=== PATIENT | female | born 1965 | race Caucasian/White ===

== ENCOUNTER → 2017-03-02 | Outpatient (CLI) | payer BC ==
--- NOTE | 2017-03-02 13:26 | MM ---
Reason for exam: screening (asymptomatic). Last mammogram was performed 1 year and 2 months ago. History: Patient is postmenopausal. Physical Findings: A clinical breast exam by your physician is recommended on an annual basis and results should be correlated with mammographic findings. MG Screening Mammo w CAD Bilateral CC and MLO view(s) were taken. Prior study comparison: December 31, 2015, bilateral MG screening mammo w CAD. January 02, 2015, right breast MG work up mamm w CAD RT. The breast tissue is heterogeneously dense. This may lower the sensitivity of mammography. There is no discrete abnormality. ASSESSMENT: Negative, BI-RAD 1 RECOMMENDATION: Routine screening mammogram of both breasts in 1 year.
== END | disposition home or self-care (01) ==
LOC: RADMAMWWP 08:23
PROVIDERS: ATTEND Family Medicine
DX: Z12.31 Encounter for screening mammogram for malignant neoplasm of breast (principal)

== ENCOUNTER → 2018-03-21 | Outpatient (CLI) | payer BC ==
--- NOTE | 2018-03-22 08:19 | MM ---
Reason for exam: screening (asymptomatic). Last mammogram was performed 1 year and 1 month ago. History: Patient is postmenopausal. Physical Findings: A clinical breast exam by your physician is recommended on an annual basis and results should be correlated with mammographic findings. MG Screening Mammo w CAD Bilateral CC and MLO view(s) were taken. Prior study comparison: March 02, 2017, bilateral MG screening mammo w CAD. December 31, 2015, bilateral MG screening mammo w CAD. The breast tissue is heterogeneously dense. This may lower the sensitivity of mammography. Nodule measuring 7mm upper outer quadrant left breast 7.8cm from nipple. This finding is changed when compared with previous exams. ASSESSMENT: Incomplete: need additional imaging evaluation, BI-RAD 0 RECOMMENDATION: Special view mammogram and ultrasound of the left breast. [facility] will attempt to contact patient to return for supplemental views and ultrasound.
== END | disposition home or self-care (01) ==
LOC: RADMAMWWP 06:48
PROVIDERS: ATTEND Family Medicine
DX: Z12.31 Encounter for screening mammogram for malignant neoplasm of breast (principal)
CPT/HCPCS: 77067

== ENCOUNTER → 2018-04-11 | Outpatient (CLI) | payer BC ==
--- NOTE | 2018-04-11 13:42 | MM ---
Reason for exam: additional evaluation requested from abnormal screening. Last mammogram was performed 1 month ago. History: Patient is postmenopausal. Physical Findings: Nurse Summary: 0.5cm nodule in the left breast at 1 o'clock (nurse samina). MG Work Up Mamm w CAD LT Spot compression CC, spot compression MLO, and ML view(s) were taken of the left breast. Prior study comparison: March 21, 2018, bilateral MG screening mammo w CAD. March 02, 2017, bilateral MG screening mammo w CAD. The breast tissue is heterogeneously dense. This may lower the sensitivity of mammography. Finding: There is a persistent equal density (isodense), circumscribed round mass located 6 cm from the nipple in the lower outer quadrant, middle position of the left breast. There is no discrete abnormality at palpable area with BB. These results were verbally communicated with the patient and result sheet given to the patient on 04/11/18. ASSESSMENT: Incomplete: need additional imaging evaluation, BI-RAD 0 RECOMMENDATION: Ultrasound of the left breast.
--- NOTE | 2018-04-11 13:44 | USB ---
Reason for exam: additional evaluation requested from abnormal screening. History: Patient is postmenopausal. US Breast Workup Limited LT Left limited breast ultrasound including focal area of concern, retroareolar and axilla demonstrates a 0.4 x 0.3 x 0.4cm lesion too small to characterize at 4 o'clock and a 0.7 x 0.3 x 0.6cm cystic cluster at 4 o'clock. These results were verbally communicated with the patient and result sheet given to the patient on 04/11/18. ASSESSMENT: Probably benign, BI-RAD 3 RECOMMENDATION: Follow-up diagnostic mammogram and ultrasound of the left breast in 6 months. Manage on a clinical basis with regard to palpable.
== END | disposition home or self-care (01) ==
LOC: RADMAMWWP 10:25
PROVIDERS: ATTEND Family Medicine
DX: R92.8 Other abnormal and inconclusive findings on diagnostic imaging of breast (principal)
CPT/HCPCS: 77065

== ENCOUNTER → 2019-04-03 | Outpatient (CLI) | payer BC ==
--- NOTE | 2019-04-04 13:48 | MM ---
Reason for exam: screening (asymptomatic). Last mammogram was performed 1 year ago. History: Patient is postmenopausal. Physical Findings: A clinical breast exam by your physician is recommended on an annual basis and results should be correlated with mammographic findings. MG Screening Mammo w CAD Bilateral CC and MLO view(s) were taken. Prior study comparison: April 11, 2018, left breast MG work up mamm w CAD LT. March 21, 2018, bilateral MG screening mammo w CAD. The breast tissue is heterogeneously dense. This may lower the sensitivity of mammography. There is chronic nodularity bilaterally. There is no dominant lesion. No significant changes when compared with prior studies. ASSESSMENT: Benign, BI-RAD 2 RECOMMENDATION: Routine screening mammogram of both breasts in 1 year.
== END | disposition home or self-care (01) ==
LOC: RADMAMWWP 08:50
PROVIDERS: ATTEND Family Medicine
DX: Z12.31 Encounter for screening mammogram for malignant neoplasm of breast (principal)
CPT/HCPCS: 77067

== ENCOUNTER → 2020-05-27 | Outpatient (CLI) | payer BC ==
--- NOTE | 2020-05-28 12:39 | MM ---
Reason for exam: screening (asymptomatic). Last mammogram was performed 1 year and 2 months ago. History: Patient is postmenopausal. Physical Findings: A clinical breast exam by your physician is recommended on an annual basis and results should be correlated with mammographic findings. MG Screening Mammo w CAD Bilateral CC and MLO view(s) were taken. Prior study comparison: April 03, 2019, bilateral MG screening mammo w CAD. April 11, 2018, left breast MG work up mamm w CAD LT. There are scattered fibroglandular densities. No significant changes when compared with prior studies. ASSESSMENT: Benign, BI-RAD 2 RECOMMENDATION: Routine screening mammogram of both breasts in 1 year.
== END | disposition home or self-care (01) ==
LOC: RADMAMWWP 07:37
PROVIDERS: ATTEND Nurse Practitioner
DX: Z12.31 Encounter for screening mammogram for malignant neoplasm of breast (principal)
CPT/HCPCS: 77067

== ENCOUNTER → 2021-05-28 | Outpatient (CLI) | payer BC ==
--- NOTE | 2021-05-31 11:47 | MM ---
Reason for exam: screening (asymptomatic). Last mammogram was performed 1 year ago. History: Patient is postmenopausal. Took hormonal contraceptives for 10 years. Physical Findings: A clinical breast exam by your physician is recommended on an annual basis and results should be correlated with mammographic findings. MG Screening Mammo w CAD Bilateral CC and MLO view(s) were taken. Prior study comparison: May 27, 2020, bilateral MG screening mammo w CAD. April 03, 2019, bilateral MG screening mammo w CAD. The breast tissue is heterogeneously dense. This may lower the sensitivity of mammography. There is chronic nodularity bilaterally. There is no discrete abnormality. ASSESSMENT: Benign, BI-RAD 2 RECOMMENDATION: Routine screening mammogram of both breasts in 1 year.
== END | disposition home or self-care (01) ==
LOC: RADMAMWWP 06:54
PROVIDERS: ATTEND Family Medicine
DX: Z12.31 Encounter for screening mammogram for malignant neoplasm of breast (principal); Z78.0 Asymptomatic menopausal state
CPT/HCPCS: 77067

== ENCOUNTER → 2022-12-09 | Outpatient (CLI) | payer OTHER ==
--- NOTE | 2022-12-12 08:04 | MM ---
Reason for Exam: Screening (asymptomatic). Last mammogram was performed 1 year(s) and 6 month(s) ago. Patient History: Menarche at age 8. First Full-Term at age 21. Hysterectomy at age 24. Postmenopausal. Patient used Hormonal Contraceptives for 10 years. Risk Values: Lori 5 year model risk: 1.4%. NCI Lifetime model risk: 7.4%. Prior Study Comparison: 04/03/2019 Bilateral Screening Mammogram, [facility]. 05/27/2020 Bilateral Screening Mammogram, [facility]. 05/28/2021 Bilateral Screening Mammogram, [facility]. Tissue Density: The breast tissue is heterogeneously dense. This may lower the sensitivity of mammography. Findings: Analyzed By CAD. There is no suspicious group of microcalcifications or new suspicious mass in either breast. Stable chronic nodularity right breast. Overall Assessment: Benign, BI-RAD 2 Management: Screening Mammogram of both breasts in 1 year. . Patient should continue monthly self-breast exams. A clinical breast exam by your physician is recommended on an annual basis. This exam should not preclude additional follow-up of suspicious palpable abnormalities. Note on Lori scores and lifetime risk: 1. A Lori score greater than 3% is considered moderate risk. If this is the case, consider specialist referral to assess eligibility for a risk reducing agent. 2. If overall lifetime risk for the development of breast cancer is 20% or higher, the patient may qualify for future screening with alternating mammogram and breast MRI. Electronically signed and approved by: Michael Duran M.D. Radiologis
== END | disposition home or self-care (01) ==
LOC: RADMAMWWP 08:27
PROVIDERS: ATTEND Family Medicine
DX: Z12.31 Encounter for screening mammogram for malignant neoplasm of breast (principal); Z78.0 Asymptomatic menopausal state
CPT/HCPCS: 77067

== ENCOUNTER → 2024-01-18 | Outpatient (CLI) | payer BC ==
--- NOTE | 2024-01-18 08:36 | MM ---
Reason for Exam: Screening (asymptomatic). Last mammogram was performed 1 year(s) and 1 month(s) ago. Patient History: Menarche at age 8. First Full-Term at age 21. Hysterectomy at age 24. Postmenopausal. Patient used Hormonal Contraceptives for 10 years. Risk Values: Lori 5 year model risk: 1.4%. NCI Lifetime model risk: 7.2%. Prior Study Comparison: 05/27/2020 Bilateral Screening Mammogram, [facility]. 05/28/2021 Bilateral Screening Mammogram, [facility]. 12/09/2022 Bilateral MG screening mammo w CAD, [facility]. Tissue Density: The breasts are heterogeneously dense, which may obscure small masses. Findings: Analyzed By CAD. There is no suspicious group of microcalcifications or new suspicious mass in either breast. Overall Assessment: Negative, BI-RAD 1 Management: Screening Mammogram of both breasts in 1 year. . Patient should continue monthly self-breast exams. A clinical breast exam by your physician is recommended on an annual basis. This exam should not preclude additional follow-up of suspicious palpable abnormalities. Note on Lori scores and lifetime risk: 1. A Lori score greater than 3% is considered moderate risk. If this is the case, consider specialist referral to assess eligibility for a risk reducing agent. 2. If overall lifetime risk for the development of breast cancer is 20% or higher, the patient may qualify for future screening with alternating mammogram and breast MRI. Electronically signed and approved by: Michael Duran M.D. Radiologis
== END | disposition home or self-care (01) ==
LOC: RADMAMWWP 06:51
PROVIDERS: ATTEND Family Medicine
DX: Z12.31 Encounter for screening mammogram for malignant neoplasm of breast (principal); Z78.0 Asymptomatic menopausal state
CPT/HCPCS: 77067

== ENCOUNTER 2024-03-09 01:33 | Emergency (ER) | payer BC ==
--- NOTE | 2024-04-09 18:17 | US ---
Site ID synapse default Patient Sammi Franco M ID [id number] Age 59 years Gender F Order # Procedure LEV Date 03/09/2024 7:25:00 AM EXAMINATION TYPE: Deep venous ultrasound right lower extremity DATE OF EXAM: 03/11/2024 11:11 AM COMPARISON: NONE CLINICAL HISTORY: pain. SIDE PERFORMED: right TECHNIQUE: The lower extremity deep venous system is examined utilizing real time linear array sonog shaina with graded compression, doppler sonography and color-flow sonography. VESSELS IMAGED: External Iliac Vein (EIV) Common Femoral Vein Deep Femoral Vein Greater Saphenous Vein * Femoral Vein Popliteal Vein Small Saphenous Vein * Proximal Calf Veins (* superficial vessels) Right Leg: There is normal compressibility and augmentation of flow. No evidence for persistent filling defect. IMPRESSION: No sonographic evidence for DVT at this time.
== END 2024-03-09 08:33 | disposition home or self-care (01) ==
LOC: EC 01:33
DX: M25.561 Pain in right knee (principal)
CPT/HCPCS: 99283

== ENCOUNTER → 2025-01-28 | Outpatient (CLI) | payer BC ==
--- NOTE | 2025-01-28 14:42 | MM ---
Reason for Exam: Screening (asymptomatic). Last mammogram was performed 1 year(s) and 1 month(s) ago. Patient History: Menarche at age 8. First Full-Term at age 21. Hysterectomy at age 24. Postmenopausal. Patient used Hormonal Contraceptives for 10 years. Risk Values: Lori 5 year model risk: 1.5%. NCI Lifetime model risk: 7.0%. Prior Study Comparison: 05/28/2021 Bilateral Screening Mammogram, [facility]. 12/09/2022 Bilateral MG screening mammo w CAD, [facility]. 01/18/2024 Bilateral MG screening mammo w CAD, [facility]. Tissue Density: There are scattered areas of fibroglandular density. Findings: Analyzed By CAD. Benign-appearing bilateral axillary lymph nodes are redemonstrated. There is no suspicious group of microcalcifications or new suspicious mass in either breast. Overall Assessment: Negative, BI-RAD 1 Management: Screening Mammogram of both breasts in 1 year. . Patient should continue monthly self-breast exams. A clinical breast exam by your physician is recommended on an annual basis. This exam should not preclude additional follow-up of suspicious palpable abnormalities. Note on Lori scores and lifetime risk: 1. A Lori score greater than 3% is considered moderate risk. If this is the case, consider specialist referral to assess eligibility for a risk reducing agent. 2. If overall lifetime risk for the development of breast cancer is 20% or higher, the patient may qualify for future screening with alternating mammogram and breast MRI. [facility], , 01/28/2025 8:57 AM. Electronically signed and approved by: Brooks Gayle M.D.
== END | disposition home or self-care (01) ==
LOC: RADMAMWWP 08:22
PROVIDERS: ATTEND Family Medicine
DX: Z12.31 Encounter for screening mammogram for malignant neoplasm of breast (principal); R92.323 Mammographic fibroglandular density, bilateral breasts; Z78.0 Asymptomatic menopausal state; Z92.0 Personal history of contraception
CPT/HCPCS: 77067